=== PATIENT | female | born 1950 | race American Indian/Alaskan Native ===

== ENCOUNTER 2021-11-18 15:56 | Emergency (ER) | payer MEDICARE ==
[2021-11-19] MEDS ORDERED: SODIUM CHLORIDE 0.9% 1000 ML 1,000 ML IV ONE (04:59)
[2021-11-19] MEDS ORDERED: ONDANSETRON 4 MG/2 ML INJ IV ONE (05:04)
[2021-11-19] MEDS ORDERED: MECLIZINE 25 MG TAB PO ONE (05:04)
--- NOTE | 2021-11-19 05:04 | Emergency Department Report ---
<MATTY THOMAS - Last Filed: 11/19/21 05:57> ED General Adult HPI - General Chief complaint: Dizziness Stated complaint: DIZZINESS PUI?: No Time Seen by Provider: 11/19/21 04:51 Source: patient, EMS Mode of arrival: Stretcher Limitations: No Limitations - History of Present Illness Initial comments: This is a pleasant 71-year-old female with medical history of hypertension also hyperlipidemia; denies diabetes myocardial infarction or stroke in the past state that she fainted while walking down the aisle in the store where she did not hit on the floor but her head hit the shelves with fake hair hanging. Patient current denies any symptoms denies fever chill night sweat dizziness blurred vision headache tinnitus ear pain runny nose sore throat loss of taste or smell chest pain palpitation short of breath cough abdominal pain nausea vomiting diarrhea constipation dysuria myalgia arthralgia new rash and heat or cold intolerance. Severity scale (0 -10): 0 - Related Data Home Medications Medication Instructions Recorded Confirmed Last Taken Bupropion HCl [Wellbutrin Xl] 1 tab PO DAILY 05/26/14 05/26/14 05/26/14 Metoprolol [Lopressor TAB] 1 tab PO BID 05/26/14 05/26/14 05/26/14 Pantoprazole [Protonix] 1 tab PO DAILY 05/26/14 05/26/14 05/26/14 Quetiapine Fumarate [Seroquel] 200 mg PO QHS 05/26/14 05/26/14 05/25/14 dilTIAZem CD [Cardizem CD] 1 cap PO DAILY 05/26/14 05/26/14 05/26/14 hydroCHLOROthiazide [Hctz] 1 tab PO DAILY 05/26/14 05/26/14 05/26/14 Previous Rx's Medication Instructions Recorded Last Taken Type Ibuprofen [Motrin] 600 mg PO Q8H PRN #20 tablet 08/09/18 Unknown Rx Ondansetron [Zofran Odt] 4 mg PO Q8HR PRN #20 tab.rapdis 08/09/18 Unknown Rx Meclizine [Antivert] 25 mg PO TID PRN 10 Days #30 tab NS 11/19/21 Unknown Rx Allergies Allergy/AdvReac Type Severity Reaction Status Date / Time No Known Allergies Allergy Verified 08/09/18 18:31 ED Review of Systems Comment: All other systems reviewed and negative Constitutional: no symptoms reported, see HPI Eyes: as per HPI. denies: vision change ENT: as per HPI. denies: hearing loss Respiratory: no symptoms reported, see HPI Cardiovascular: as per HPI, syncope. denies: chest pain, palpitations, edema Endocrine: no symptoms reported, see HPI Gastrointestinal: as per HPI Genitourinary: as per HPI Musculoskeletal: as per HPI Skin: as per HPI Neurological: as per HPI Psychiatric: as per HPI Hematological/Lymphatic: as per HPI ED Past Medical Hx - Past Medical History Previous Medical History?: Yes Hx Hypertension: Yes (7 YRS) Hx GERD: Yes Hx Arthritis: Yes Hx Asthma: No Hx COPD: No Hx Tuberculosis: No Hx HIV: No - Social History Smoking Status: Never Smoker Substance Use Type: None - Medications Home Medications: Home Medications Medication Instructions Recorded Confirmed Last Taken Type Bupropion HCl [Wellbutrin Xl] 1 tab PO DAILY 05/26/14 05/26/14 05/26/14 History Metoprolol [Lopressor TAB] 1 tab PO BID 05/26/14 05/26/14 05/26/14 History Pantoprazole [Protonix] 1 tab PO DAILY 05/26/14 05/26/14 05/26/14 History Quetiapine Fumarate [Seroquel] 200 mg PO QHS 05/26/14 05/26/14 05/25/14 History dilTIAZem CD [Cardizem CD] 1 cap PO DAILY 05/26/14 05/26/14 05/26/14 History hydroCHLOROthiazide [Hctz] 1 tab PO DAILY 05/26/14 05/26/14 05/26/14 History Ibuprofen [Motrin] 600 mg PO Q8H PRN #20 tablet 08/09/18 Unknown Rx Ondansetron [Zofran Odt] 4 mg PO Q8HR PRN #20 tab.rapdis 08/09/18 Unknown Rx Meclizine [Antivert] 25 mg PO TID PRN 10 Days #30 tab NS 11/19/21 Unknown Rx ED Physical Exam - General Limitations: No Limitations General appearance: alert, in no apparent distress - Head Head exam: Present: atraumatic, normocephalic, normal inspection - Eye Eye exam: Present: normal appearance, PERRL, EOMI Pupils: Present: normal accommodation - ENT ENT exam: Present: normal exam, mucous membranes moist, TM's normal bilaterally, normal external ear exam - Neck Neck exam: Present: normal inspection, full ROM - Respiratory Respiratory exam: Present: normal lung sounds bilaterally. Absent: respiratory distress, wheezes, rales, rhonchi, stridor - Cardiovascular Cardiovascular Exam: Present: regular rate, normal rhythm, normal heart sounds - GI/Abdominal GI/Abdominal exam: Present: soft. Absent: distended, tenderness, guarding, rebound, rigid - Extremities Exam Extremities exam: Present: normal inspection, full ROM, normal capillary refill - Back Exam Back exam: Present: full ROM - Neurological Exam Neurological exam: Present: alert, oriented X3, CN II-XII intact, normal gait - Psychiatric Psychiatric exam: Present: normal affect, normal mood - Skin Skin exam: Present: normal color ED Course - Reevaluation(s) Reevaluation #1: 11/19/21 05:57 PENDING LABS AND IMAGE TO RETURN; WILL SIGN OUT MY PATIENT CARE TO MY COLLEAGE DR. PANIAGUA ED Medical Decision Making - Lab Data Result diagrams: 11/19/21 05:15 ED Disposition Clinical Impression: Vertigo Disposition: 01 HOME / SELF CARE / HOMELESS Condition: Stable Instructions: Dizziness, [id number] Additional Instructions: Please take your time when getting up from sitting or lying down as this could worsen your symptom. Increase your daily fluid to help your hydration Take your new medication as prescribed to help your symptoms Call and schedule follow-up with your primary doctor in the next 3 to 5 days for progress Please do not hesitate to call or return to emergency if your symptoms worsen Prescriptions: Meclizine [Antivert] 25 mg PO TID PRN 10 Days #30 tab NS PRN Reason: Vertigo Referrals: POOL CROOK MD [Primary Care Provider] - 3-5 Days <JULIO CESAR PANIAGUA - Last Filed: 11/19/21 13:53> ED Review of Systems ROS: Stated complaint: DIZZINESS Other details as noted in HPI ED Course Vital Signs 11/18/21 11/19/21 11/19/21 15:58 07:25 08:01 Temperature 98.3 F Pulse Rate 76 74 Respiratory 18 18 Rate Blood Pressure 154/72 146/75 [Left] O2 Sat by Pulse 98 100 99 Oximetry 11/19/21 12:02 Temperature Pulse Rate 74 Respiratory 16 Rate Blood Pressure 146/77 [Left] O2 Sat by Pulse 100 Oximetry - Reevaluation(s) Reevaluation #2: 11/19/21 13:35 Pt signed out to me at 6:00 at shift change while waiting for her labs-- reviewed to be reassuring -- upon my reevaluation patient reports feeling much better with any dizziness at this time. Reevaluation #3: 11/19/21 13:48 After my extensive discussion with the patient she described the dizziness as n oting room spinning around her especially worsening when she is getting up from sitting or from laying down. With unremarkable workup this is likely vertigo and did explain to this patient that i was going to discharge her with Meclizine and with precaution to be sure to brace herself when getting up from sitting to standing or getting up from sleep. Pt voice understanding. ED Medical Decision Making - Lab Data Result diagrams: 11/19/21 05:15 11/19/21 05:15 Critical care attestation.: If time is entered above; I have spent that time in minutes in the direct care of this critically ill patient, excluding procedure time. ED Disposition Is pt being admited?: No Does the pt Need Aspirin: No
--- NOTE | 2021-11-19 05:26 | XRay Report ---
CHEST 1 VIEW INDICATION / CLINICAL INFORMATION: SYNCOPE. COMPARISON: None available. FINDINGS: SUPPORT DEVICES: None. HEART / MEDIASTINUM: No significant abnormality. LUNGS / PLEURA: No significant pulmonary abnormality. BONES: No significant osseous abnormality. Prior reverse arthroplasty of the left shoulder. ADDITIONAL FINDINGS: No significant additional findings. IMPRESSION: 1. No active cardiopulmonary disease. Signer Name: Luis Tinajero II, MD Signed: 11/19/2021 5:22 AM Workstation Name: [id number]
[2021-11-19 05:29] LABS: Hematocrit 39.3 % (30.3-42.9); Hemoglobin 12.8 gm/dl (10.1-14.3); Mean Corpuscular HGB Conc 33 % (30-34); Mean Corpuscular Volume 85 fl (79-97); Platelet Count 277 K/mm3 (140-440); Red Blood Count 4.61 M/mm3 (3.65-5.03); Red Cell Distribution Width 15.4 % (13.2-15.2)
[2021-11-19 05:54] LABS: Alanine Aminotransferase 10 units/L (7-56); Albumin 4.7 g/dL (3.9-5); Blood Urea Nitrogen 10 mg/dL (7-17); Calcium 9.6 mg/dL (8.4-10.2); Hemolysis Index 5
[2021-11-19 06:03] LABS: BUN/Creatinine Ratio 14
--- NOTE | 2021-11-19 06:54 | Cat Scan Report ---
CT HEAD WITHOUT CONTRAST INDICATION / CLINICAL INFORMATION: Syncopal episode. TECHNIQUE: CT head was performed without administration of intravenous contrast. All CT scans at this location are performed using CT dose reduction for ALARA by means of automated exposure control. COMPARISON: None available. FINDINGS: CEREBRAL HEMISPHERES: Generalized atrophy and bilateral regions of periventricular white matter hypoa ttenuation compatible with microvascular ischemia are demonstrated. No midline shift. Basal cisterns patent. HEMORRHAGE: None. CEREBELLUM / BRAINSTEM: No significant abnormality. ORBITS: No significant abnormality. Prior bilateral cataract surgery. SOFT TISSUES: No significant abnormality. SKULL: No significant abnormality. PARANASAL SINUSES / MASTOID AIR CELLS: Normal as visualized. ADDITIONAL FINDINGS: None. IMPRESSION: 1. No acute intracranial abnormality. Signer Name: Luis Tinajero II, MD Signed: 11/19/2021 6:54 AM Workstation Name: [id number]
[2021-11-19 09:11] LABS: Bilirubin,Urine NEG (Negative); Blood,Urine NEG (Negative); Color,Urine Colorless (Yellow); Hyaline Casts,Urine 1 /LPF; Mucus,Urine FEW /HPF; Protein,Urine <15 mg/dL mg/dL (Negative); RBC,Urine < 1.0 /HPF (0.0-6.0); Urobilinogen,Urine < 2.0 mg/dL (<2.0)
[2021-11-19 14:29] VITALS: BP 134/69
== END 2021-11-19 14:29 | disposition home or self-care (01) ==
LOC: ED 15:56
DX: R42 Dizziness and giddiness (principal); I10 Essential (primary) hypertension
CPT/HCPCS: 36415; 70450; 71045; 80053; 81001; 83735; 83880; 85027; 96361; 96374; 99285; J2405; J7030; 80320; G0480